=== PATIENT | female | born 1945 | race Caucasian/White ===

== ENCOUNTER 2018-12-22 12:08 | Emergency (ER) | payer OTHER ==
[~2018-12-22] VITALS: Ht 154.9 cm; Wt 74.4 kg
[~2018-12-22 12:08] MED LIST: ARICEPT5 MG; DEPAKOTE ER500 MG; GEODON20 MG; LEVAQUIN750 MG PO; METFORMIN HCL500 MG; POLY119PG PO; SEROPHENE50 MG; SYNTHROID50 MCG; TRILIPIX135 MG; Ursodiol PO; ZYPREXA5 MG
[2018-12-22] MEDS ORDERED: PLAVIX75 MG PO (12:39)
[2018-12-22] MEDS ORDERED: CERTAVITE SR-A1 EACH (12:39)
[2018-12-22] MEDS ORDERED: FOLIC ACID1 MG (12:40)
[2018-12-22] MEDS ORDERED: TOPROL XL25 MG PO (12:40)
[2018-12-22] MEDS ORDERED: PEPCID20 MG (12:40)
[2018-12-22] MEDS ORDERED: TRAZODONE HCL100 MG PO (12:40)
[2018-12-22] MEDS ORDERED: VITAMIN B-121000 MCG PO (12:41)
== END 2018-12-22 18:33 | disposition home or self-care (01) ==
LOC: ER 12:08 → CPU-OBS 12:45 → ER 12:45
DX: R07.89 Other chest pain (principal)

== ENCOUNTER 2023-09-04 14:20 | Emergency (ER) | payer OTHER ==
[~2023-09-04] VITALS: Ht 154.9 cm; Wt 55.8 kg
[~2023-09-04 14:20] MED LIST changes: +CERTAVITE SR-A1 EACH; +FOLIC ACID1 MG; +PEPCID20 MG; +PLAVIX75 MG PO; +TOPROL XL25 MG PO; +TRAZODONE HCL100 MG PO; +VITAMIN B-121000 MCG PO
[2023-09-04] MEDS ORDERED: METOPROLOL SUCC50 MG (14:35)
[2023-09-04] MEDS ORDERED: DONEPEZIL HCL10 MG (14:35)
[2023-09-04] MEDS ORDERED: JANUVIA100 MG (14:35)
[2023-09-04] MEDS ORDERED: ATORVASTATIN CA20 MG (14:35)
[2023-09-04] MEDS ORDERED: TRAZODONE HCL150 MG (14:35)
[2023-09-04] MEDS ORDERED: ESCITALOPRA5 MG/5 ML (14:36)
[2023-09-04] MEDS ORDERED: FENOFIBRATE145 MG (14:36)
[2023-09-04 17:15] LABS: HEMATOCRIT 36.6 % (36.0-45.00); HEMOGLOBIN 12.2 g/dL (12.0-15.00); MEAN CELL VOLUME 97.7 fL (80.00-100.00); MEAN CORPUSCULAR HEMOGLOBIN 32.5 pg (27.00-32.0); MEAN CORPUSCULAR HGB CONC 33.3 g/dl (32.0-36.0); PLATELET COUNT 304 K/uL (150-450); RED BLOOD COUNT 3.75 M/uL (4.00-6.00); RED CELL DISTRIBUTION WIDTH 12.6 % (11.5-14.5)
[2023-09-04 17:26] LABS: PH,URINE 7.5 (5.0-8.0); URINE APPEARANCE Cloudy; URINE BILIRRUBIN Negative (NEGATIVE); URINE BLOOD Negative; URINE COLOR Yellow; URINE GLUCOSE Negative (NEGATIVE); URINE LEUKOCYTE Negative; URINE NITRATE Negative; URINE PROTEIN Negative (NEGATIVE)
[2023-09-04 17:29] LABS: URINE BACTERIA 588.2 uL (0.0-1933); URINE EPITHELIAL CELLS 4.4 uL (0.0-38.8); URINE WBC 3.3 uL (0.0-23.2)
[2023-09-04 17:32] LABS: ALBUMIN 3.3 gm/dL (3.4-5.0); BILIRUBIN TOTAL 0.31 mg/dL (0.3-1.2); CALCIUM 9.5 mg/dL (8.5-10.1); CREATININE SERUM 0.89 mg/dL (0.55-1.02); GFR 61.34; POTASSIUM 4.4 mEq/L (3.5-5.1); TOTAL PROTEIN 6.3 gm/dL (6.4-8.2)
[2023-09-04 17:43] LABS: URINE RBC 1.5 uL (0.0-20.8)
== END 2023-09-04 20:50 | disposition home or self-care (01) ==
LOC: ER 14:20
PROVIDERS: General Practice
DX: R07.89 Other chest pain (principal); Z88.6 Allergy status to analgesic agent; Z88.2 Allergy status to sulfonamides; Z88.0 Allergy status to penicillin; I25.10 Atherosclerotic heart disease of native coronary artery without angina pectoris; E11.9 Type 2 diabetes mellitus without complications; Z79.84 Long term (current) use of oral hypoglycemic drugs